=== PATIENT | female | born 1990 | race Two or more races ===

== ENCOUNTER 2019-02-16 18:07 | Emergency (ER) | payer MEDICAID ==
[~2019-02-16] VITALS: Ht 162.6 cm; Wt 74.3 kg
[~2019-02-16 18:07] MED LIST: FERR240T9 PO; PREN1TAB49 PO
[2019-02-16 18:21] VITALS: BP 143/76; PULSE 74; RESP 18; Ht 162.6 cm; Wt 74.3 kg
[2019-02-16] MEDS ORDERED: KETOROLAC 30 MG INJ IM STA (22:30)
[2019-02-16] MEDS ORDERED: DEXAMETHASONE 10 MG/ML 1 ML INJ IM ONE (22:30)
[2019-02-16] MEDS ORDERED: NAPR-985 PO (22:46)
--- NOTE | 2019-02-16 22:50 | ERD ---
ER Documentation Chief Complaint Chief Complaint head pain s/p hitting head on ladder yesterday HPI 28-year-old female with no reported past medical history who presents status post reported head injury. States yesterday she was in her two-story home and was walking and mistakenly hit her head on some steps above. No reported LOC. Since that time she been having some neck pain, upper back pain, frontal head pain. She otherwise denies laceration to the area, worsening of headache, blurry vision, nausea, vomiting, abdominal pain. Has had some intermittent dizziness states that it is improving. ROS All systems reviewed and are negative except as per history of present illness. Medications Home Meds Active Scripts Naproxen* (Naprosyn*) 500 Mg Tablet, 500 MG PO BID PRN for PAIN AND/OR INFLAMMATION, #30 TAB Prov:TJ RAIN PA-C 02/16/19 Reported Medications Ferrous Gluconate (Iron) 1 Tab Tablet, 1 TAB PO DAILY 08/19/11 Vits W-Ca,Fe,Fa(<1MG) () 1 Tab Tablet, 1 TAB PO DAILY 08/19/11 Allergies Allergies: Coded Allergies: No Known Allergy (Unverified , 08/19/11) PMhx/Soc Medical and Surgical Hx: pt denies Medical Hx, pt denies Surgical Hx Hx Alcohol Use: No Hx Substance Use: No Hx Tobacco Use: No Smoking Status: Never smoker FmHx Family History: No diabetes, No coronary disease, No other Physical Exam Vitals Vital Signs Date Temp Pulse Resp B/P (MAP) Pulse Ox O2 O2 Flow FiO2 Time Delivery Rate 02/16/19 98.8 74 18 143/76 99 18:21 (98) Physical Exam Const: No acute distress Head: Atraumatic Eyes: Normal Conjunctiva ENT: Normal External Ears, Nose and Mouth. Neck: Full range of motion. No meningismus. Resp: Clear to auscultation bilaterally Cardio: Regular rate and rhythm, no murmurs Abd: Soft, non tender, non distended. Normal bowel sounds Skin: No petechiae or rashes Back: No midline or flank tenderness Ext: No cyanosis, or edema Neur: Awake and alert, bilateral upper extremities 5/5 strength throughout, SI LT throughout upper extremities, good range of motion upper back and neck Psych: Normal Mood and Affect Results 24 hrs Current Medications Medications Dose Sig/Hayley Start Time Status Last (Trade) Ordered Route PRN Stop Time Admin Dose Reason Admin Ketorolac 30 mg ONCE STAT 02/16/19 DC Tromethamine IM 22:30 (Toradol) 02/16/19 22:31 10 mg ONCE ONCE 02/16/19 DC Dexamethasone IM 22:30 (Decadron) 02/16/19 22:31 Procedures/MDM 28-year-old female presents status post mild head trauma. She has a completely reassuring exam and based off of this and her history I have suspicion for any acute process warranting further emergent care or work-up at this time. Does not have any red flag symptoms. No imaging indicated at this time. ED course/plan: Toradol, Decadron single dose, will discharge with naproxen, strict return precautions explained Disposition Departure Diagnosis: Primary Impression: Acute head injury Condition: Stable Patient Instructions: HEAD INJURY with Wake-Up (Adult) Referrals: [facility] YOU HAVE RECEIVED A MEDICAL SCREENING EXAM AND THE RESULTS INDICATE THAT YOU DO NOT HAVE A CONDITION THAT REQUIRES URGENT TREATMENT IN THE EMERGENCY DEPARTMENT. FURTHER EVALUATION AND TREATMENT OF YOUR CONDITION CAN WAIT UNTIL YOU ARE SEEN IN YOUR DOCTORS OFFICE WITHIN THE NEXT 1-2 DAYS. IT IS YOUR RESPONSIBILITY TO [facility] AN [facility]. IF YOU HAVE A PRIMARY DOCTOR --you should call your primary doctor and schedule an appointment IF YOU DO NOT HAVE A PRIMARY DOCTOR YOU CAN CALL OUR PHYSICIAN REFERRAL HOTLINE AT IF YOU CAN NOT AFFORD TO SEE A PHYSICIAN YOU CAN CHOSE FROM THE FOLLOWING [facility] [address] [facility]. [facility] [address] [facility] [facility] [address] [facility] [facility] [address] [facility]. [facility] [address] [facility]. [facility]. [address] Additional Instructions: Call your primary care doctor TOMORROW for an appointment during the next 2-3 days.See the doctor sooner or return here if your condition worsens before your appointment time. TJ RAIN PA-C Feb 16, 2019 22:50
== END 2019-02-16 23:03 | disposition home or self-care (01) ==
LOC: FTE 18:07
DX: S09.90XA Unspecified injury of head, initial encounter (principal); W22.8XXA Striking against or struck by other objects, initial encounter; Y92.009 Unspecified place in unspecified non-institutional (private) residence as the place of occurrence of the external cause
CPT/HCPCS: 81025; 96372; J1100; J1885; Z7502